=== PATIENT | male | born 1995 | race Caucasian/White ===

== ENCOUNTER 2018-11-19 11:41 | Emergency (ER) | payer OTHER ==
[~2018-11-19] VITALS: Ht 162.6 cm; Wt 58.7 kg
[2018-11-19 12:06] VITALS: BP 167/81; PULSE 61; RESP 18; Ht 162.6 cm; Wt 58.7 kg
[2018-11-19] MEDS ORDERED: ONDANSETRON (ODT) 4 MG TAB ODT STA (14:06)
[2018-11-19] MEDS ORDERED: HYDROCODONE/APAP (5/325) TAB PO ONE (14:30)
[2018-11-19] MEDS ORDERED: NAPR-985 PO (15:36)
[2018-11-19] MEDS ORDERED: HYDR-4011 PO (15:36)
--- NOTE | 2018-11-19 15:43 | ERD ---
ER Documentation Chief Complaint Chief Complaint left arm pain s/p ground level fall yesterday HPI 22-year-old male presenting with pain to left elbow. Yesterday patient had a fall on the ground and landed on his elbow. He has pain elbow. [id number]. Is not taking medications for pain. Denies medical p roblems. NKDA. Surgical history denies. Social history denies ROS All systems reviewed and are negative except as per history of present illness. Medications Home Meds Active Scripts Naproxen* (Naprosyn*) 500 Mg Tablet, 500 MG PO BID PRN for PAIN AND/OR INFLAMMATION, #30 TAB Prov:JAZMINE DAVENPORT PA-C 11/19/18 Hydrocodone/Acetaminophen ([place] 5-325 Tablet) 1 Each Tablet, 1 TAB PO Q6H PRN for PAIN, #7 TAB Prov:JAZMINE DAVENPORT PA-C 11/19/18 PMhx/Soc Medical and Surgical Hx: pt denies Medical Hx, pt denies Surgical Hx History of Surgery: No Anesthesia Reaction: No Hx Neurological Disorder: No Hx Respiratory Disorders: No Hx Cardiac Disorders: No Hx Psychiatric Problems: No Hx Miscellaneous Medical Probl: No Hx Alcohol Use: No Hx Substance Use: No Hx Tobacco Use: No Smoking Status: Never smoker FmHx Family History: No diabetes, No coronary disease, No other Physical Exam Vitals Vital Signs Date Temp Pulse Resp B/P (MAP) Pulse Ox O2 O2 Flow FiO2 Time Delivery Rate 11/19/18 98.3 61 18 167/81 98 12:06 (109) Physical Exam GENERAL: The patient is well-appearing, well-nourished, in no acute distress CHEST: Clear to auscultation bilaterally. There are no rales, wheezes or rhonchi. HEART: Regular rate and rhythm. No murmurs, clicks, rubs or gallops. EXTREMITIES: Swelling noted to the left elbow with tenderness to palpation at the olecranon and radial head. Pulses intact to the distal extremity. Patient is able to move all digits of the fingers without difficulties. Compartments soft. NEUROLOGIC: Alert and oriented. Cranial nerves II through XII intact. Motor s trength in all 4 extremities with 5 out of 5 strength. Sensation grossly intact. Normal speech and gait. SKIN: There is no apparent rash or petechiae. The skin is warm and dry. Results 24 hrs Current Medications Medications Dose Sig/Dorcas Start Time Status Last (Trade) Ordered Route PRN Stop Time Admin Dose Reason Admin 1 tab ONCE ONCE 11/19/18 DC 11/19/18 Acetaminophen PO 14:30 14:19 / 11/19/18 14:31 Hydrocodone Bitart ([place] (5/325)) Ondansetron 4 mg ONCE STAT 11/19/18 DC 11/19/18 HCl (Zofran ODT 14:06 14:19 Odt) 11/19/18 14:08 Procedures/MDM DIAGNOSTIC IMAGING REPORT Patient: DANETTE TSAI : 1995 Age: 22 Sex: M MR #: [id number] DOS: 11/19/18 1406 Ordering MD: AUBREY DAVENPORT PA-C Location: [facility] Room/Bed: PROCEDURE: XR left elbow. CLINICAL INDICATION: Left elbow pain. TECHNIQUE: 4 views. Frontal, lateral, and obliques. COMPARISON: No prior study is available for comparison. FINDINGS: There is an acute nondisplaced fracture of the radial neck. There is no other fracture and there is no dislocation. Fluid is present in the left elbow joint. Articular surfaces are intact. There is no lytic or blastic lesion. There is no radiopaque foreign body. IMPRESSION: 1. Acute nondisplaced fracture of the radial neck. 2. Fluid in the left elbow joint. 3. Otherwise unremarkable images of the left elbow. DIAGNOSTIC IMAGING REPORT Patient: DANETTE TSAI : 1995 Age: 22 Sex: M MR #: [id number] DOS: 11/19/18 1406 Ordering MD: AUBREY DAVENPORT PA-C Location: [facility] Room/Bed: PROCEDURE: XR Left Forearm. CLINICAL INDICATION: Trauma. Left forearm pain. TECHNIQUE: AP and lateral views of the left forearm were obtained. COMPARISON: No prior studies are available for comparison. FINDINGS: There is an acute nondisplaced fracture of the radial neck. There is no other fracture and there is no dislocation. Fluid is present in the left elbow joint. Articular surfaces are intact. There is no lytic or blastic lesion. There is no radiopaque foreign body. IMPRESSION: 1. Acute nondisplaced fracture of the radial neck. 2. Fluid in the left elbow joint. 3. Otherwise unremarkable images of the left forearm. ER Course: Long-arm splint applied in the ED. Patient is neuro intact pre-and post splint application. Sling applied in ED. MDM: 22-year-old male presenting with pain to left elbow. I have low suspicion for compartment syndrome. I have low suspicion for tendon or ligament injury. Patient does have a fracture noted on x-ray and patient will be splinted and recommended to follow-up with primary doctor. All questions answered discharge. Departure Diagnosis: Primary Impression: Elbow fracture Condition: Stable Patient Instructions: Elbow Fracture Referrals: DESTINY KING MD [facility] Hours: Sun-Sun 9:00 AM - 5:00 PM Additional Instructions: FOLLOW UP WITH YOUR PRIMARY CARE PHYSICIAN TOMORROW.Return to this facility if you are not improving as expected. JAZMINE DAVENPORT PA-C Nov 19, 2018 15:43
== END 2018-11-19 16:16 | disposition home or self-care (01) ==
LOC: FTE 11:41
DX: S52.132A Displaced fracture of neck of left radius, initial encounter for closed fracture (principal); W18.39XA Other fall on same level, initial encounter; Y92.9 Unspecified place or not applicable
CPT/HCPCS: 29105; 73080; 73090; Z7502; Z7610